=== PATIENT | male | born 1985 | race Caucasian/White ===

== ENCOUNTER 2024-12-26 20:23 | Emergency (ER) | payer OTHER ==
[~2024-12-26] VITALS: Ht 165.1 cm; Wt 80.0 kg
[2024-12-26 20:29] VITALS: O2SAT 100
[2024-12-26] MEDS: BACITRACIN ZINC OINT UDPKT TOP ONE (21:24)
[2024-12-26] MEDS: TETANUS, DIPHTHERIA, PERTUSSIS VAC/PF 0.5ML (>10YR OLD) IM ONE (21:24)
[2024-12-26] MEDS: LIDOCAINE HCL/EPINEPHRINE 1%-EPI 1:100,000 20ML VIAL INFIL ONE (21:24)
[2024-12-26 21:52] VITALS: BP 118/72; PULSE 88; RESP 16; TEMP 37.1; O2SAT 100
== END 2024-12-26 21:51 ==
LOC: ER 20:23
DX: S46.221A Laceration of muscle, fascia and tendon of other parts of biceps, right arm, initial encounter (principal); Y04.0XXA Assault by unarmed brawl or fight, initial encounter; Y93.89 Activity, other specified; Y92.89 Other specified places as the place of occurrence of the external cause; Y99.8 Other external cause status
CPT/HCPCS: 73060; 90715; 12002; 90471; 99283; J2004; Z7610 ×3